=== PATIENT | female | born 1990 | race American Indian/Alaskan Native ===

== ENCOUNTER 2018-07-16 10:43 | Day surgery (SDC) | payer BC ==
--- NOTE | 2018-07-16 12:46 | Anesthesia Consultation ---
Anesthesia Consult and Med Hx Date of service: 07/16/18 - Airway Anesthetic Teeth Evaluation: Good ROM Head & Neck: Adequate Mental/Hyoid Distance: Adequate Mallampati Class: Class II Intubation Access Assessment: Probably Good - Pulmonary Exam CTA: Yes - Cardiac Exam Cardiac Exam: RRR - Pre-Operative Health Status ASA Pre-Surgery Classification: ASA1 Proposed Anesthetic Plan: General - Pulmonary Hx Smoking: No Hx Asthma: No Hx Respiratory Symptoms: No - Cardiovascular System Hx Hypertension: No Hx Heart Attack/AMI: No Hx Percutaneous Transluminal Coronary Angioplasty (PTCA): No - Central Nervous System Hx Seizures: No CVA: No - Gastrointestinal Hx Gastroesophageal Reflux Disease: No - Endocrine Hx Renal Disease: No Hx Liver Disease: No Hx Insulin Dependent Diabetes: No Hx Thyroid Disease: No - Additional Comments Anesthesia Medical History Comments: No prior GA but no FHx anesthetic complications.
--- NOTE | 2018-07-16 12:47 | Anesthesia Day of Surgery ---
Anesthesia Day of Surgery - Day of Surgery Patient Examined: Yes Patient H&P Reviewed: Yes Patient is NPO: Yes
[2018-07-16 12:54] LABS: Basophils % (Auto) 0.8 % (0.0-1.8); Eosinophils % (Auto) 0.6 % (0.0-4.3); Hematocrit 37.1 % (30.3-42.9); Lymphocytes % (Auto) 44.4 % (13.4-35.0); Mean Corpuscular HGB Conc 33 % (30-34); Mean Corpuscular Hemoglobin 27 pg (28-32); Mean Corpuscular Volume 83 fl (79-97); Monocytes # (Auto) 0.4 K/mm3 (0.0-0.8); Monocytes % (Auto) 7.8 % (0.0-7.3); Platelet Count 279 K/mm3 (140-440); Red Blood Count 4.45 M/mm3 (3.65-5.03); Red Cell Distribution Width 15.1 % (13.2-15.2)
[2018-07-16] MEDS ORDERED: NEURONTIN PO NR (13:00)
[2018-07-16] MEDS ORDERED: ANCEF/STERILE WATER 2 GM/20 ML IV NR (13:00)
[2018-07-16] MEDS ORDERED: VERSED IV NR (13:00)
[2018-07-16] MEDS ORDERED: LACTATED RINGERS 1,000 ML IV SCH (13:00)
[2018-07-16] MEDS ORDERED: DILAUDID ONE ×2 (14:05→16:17)
[2018-07-16] MEDS ORDERED: DECADRON ONE (14:05)
[2018-07-16] MEDS ORDERED: ZOFRAN ONE (14:05)
[2018-07-16] MEDS ORDERED: DIPRIVAN 10 MG/ML IV ONE (14:05)
[2018-07-16] MEDS ORDERED: XYLOCAINE MPF 2% ONE (14:05)
[2018-07-16] MEDS ORDERED: NACL 0.9% IR ONE (16:01)
[2018-07-16] MEDS ORDERED: TORADOL ONE (17:44)
[2018-07-16] MEDS: DILAUDID IV PRN ×3 (18:09→18:28)
--- NOTE | 2018-07-16 19:00 | Post Anesthesia Evaluation ---
- Post Anesthesia Evaluation Patient Participated: Yes Airway Patent: Yes Stable Respiratory Function: Yes Nausea/Vomiting: No Temp > 96.8F: Yes Pain Manageable: Yes Adequeate Hydration: Yes Anesthesia Complications: No Block Receding Appropriately: Not Applicable Patient on Ventilator: No
--- NOTE | 2018-07-16 19:36 | Operative Report ---
PREOPERATIVE DIAGNOSIS: Macromastia. POSTOPERATIVE DIAGNOSIS: Macromastia. PROCEDURE: Bilateral reduction mammoplasty. SURGEON: Merlin Menchaca MD DIRECTOR LIFE: Kwasi Blatazar CSA. FINDINGS: A 1240 g removed from the right breast, 1180 g removed from the left breast. DESCRIPTION OF PROCEDURE: The patient was brought to the operating room and placed in supine position. Following administration of general anesthesia, bilateral breasts were prepped with Betadine solution and draped in the usual sterile manner. A #10 blade scalpel was used to make a circumareolar skin incision followed by de-epithelization of inferior dermal pedicle. Modified Mathews pattern skin markings were incised with the scalpel, deepened through subcutaneous fat and breast tissue using electrocautery. Skin flaps were raised in standard manner as was fashioning of an inferior central mound pedicle. Breast tissue was resected inclusive of bilateral nipple areolar complexes due to the excessive pedicle length. Hemostasis controlled using electrocautery. Closure was performed over 10 mm DOMENIC drains using interrupted and running subcuticular 2-0 Monocryl sutures. Mastisol, Steri-Strips, and sterile dressings were applied. The patient tolerated procedure well and was taken to recovery in stable condition. JOB# [id number] FTW/NTS
[2018-07-16 20:04] VITALS: BP 126/63
== END 2018-07-16 19:55 | disposition home or self-care (01) ==
LOC: OR 10:43
PROVIDERS: ATTEND Plastic Surgery
DX: N60.81 Other benign mammary dysplasias of right breast (principal); N62 Hypertrophy of breast; N60.91 Unspecified benign mammary dysplasia of right breast; Z82.49 Family history of ischemic heart disease and other diseases of the circulatory system
CPT/HCPCS: 36415; 81025; 85025; 88305; J0690; J1100; J1170; J1885; J2250; J2405; J2704; J7120